=== PATIENT | female | born 1995 | race Caucasian/White ===

== ENCOUNTER 2017-12-30 15:51 | Emergency (ER) | payer MEDICAID ==
[~2017-12-30] VITALS: Ht 157.5 cm; Wt 71.0 kg
[~2017-12-30 15:51] MED LIST: AMPH30TA3 PO; HYDR453.3 TOP; IBUP-1985 PO; ONDA4TAB59 PO; PERM60CR4 TOP
[2017-12-30] MEDS ORDERED: NAPR-56 PO (17:17)
[2017-12-30] MEDS ORDERED: PENI250T2 PO (17:17)
[2017-12-30 17:39] VITALS: BP 118/98
== END 2017-12-30 17:43 | disposition home or self-care (01) ==
LOC: ER 15:52
DX: K04.7 Periapical abscess without sinus (principal); Z79.2 Long term (current) use of antibiotics; Z79.899 Other long term (current) drug therapy
CPT/HCPCS: 99283

== ENCOUNTER 2018-09-15 23:48 | Emergency (ER) | payer MEDICAID ==
[~2018-09-15] VITALS: Ht 160 cm; Wt 51.4 kg
[2018-09-16] MEDS ORDERED: ipratropium/albuterol 3ml nebule NEB ONE (00:55)
--- NOTE | 2018-09-16 01:14 | NUR ---
LAB RECEIVED URINE
[2018-09-16 01:28] LABS: URINE HCG NEGATIVE (NEG)
[2018-09-16 01:38] LABS: CLARITY,URINE SLIGHTLY CLOUDY (Clear); COLOR,URINE YELLOW (Yellow); GLUCOSE, URINE NEGATIVE (Neg); KETONES,URINE 40 mg/dl (Neg); LEUKOCYTE ESTERASE ,URINE NEGATIVE (Neg); NITRITES, URINE NEGATIVE (Neg); OCCULT BLOOD,URINE SMALL (Neg); PH,URINE 5.5 (4.8-8.0); PROTEIN,URINE NEGATIVE (Neg); UROBILINOGEN,URINE 0.2 E.U/dL (0.2-1.0)
[2018-09-16 01:39] LABS: UA COLLECTION TYPE VOIDED
[2018-09-16 01:44] LABS: BACTERIA,URINE 3+ /HPF (Neg); RBC,URINE 0-2 /HPF (0-2); SQUAMOUS EPITHELIAL CELL,UR MANY /LPF (FEW); WBC,URINE 0-4 /HPF (0-4)
[2018-09-16] MEDS ORDERED: CEPH500C5 PO (02:06)
[2018-09-16] MEDS ORDERED: IBUP-1986 PO (02:08)
[2018-09-16] MEDS ORDERED: acetaminophen w/codeine (30MG) #3 tablet PO ONE (02:10)
[2018-09-16 03:21] VITALS: BP 125/62
== END 2018-09-16 03:26 | disposition home or self-care (01) ==
LOC: ER 23:50
DX: N39.0 Urinary tract infection, site not specified (principal); R05 Cough; Z79.899 Other long term (current) drug therapy
CPT/HCPCS: 81001; 81025; 94640; 94760; 99283